=== PATIENT | female | born 1950 | race Caucasian/White ===

== ENCOUNTER → 2016-09-04 | Outpatient (CLI) | payer MEDICARE, OTHER ==
[~2016-09-04] MED LIST: ALDACTAZIDE 251 EACH PO; COLACE100 MG PO; IRON325 M1 PO; LISINOPRIL10 MG PO; MIRALAX 119 GR119 GM PO; MIRALAX17 GM PO; NORCO 7.5-3251 EACH PO; PRAVACHOL20 MG PO; PRAVASTATIN SOD10 MG PO; SERTRALINE HCL50 MG PO; TRAZODONE HCL50 MG PO; TYLENOL PM EX-1 EACH PO
== END ==
LOC: KOH-I 13:58
DX: M54.2 Cervicalgia (principal); M47.812 Spondylosis without myelopathy or radiculopathy, cervical region
CPT/HCPCS: 72050

== ENCOUNTER 2016-11-01 17:10 | Inpatient (IN) | payer MEDICARE, OTHER ==
[~2016-11-01] VITALS: Ht 172.7 cm; Wt 93.2 kg
[2016-11-01 19:28] LABS: RED BLOOD COUNT 2.96 M/UL (4.00-5.10); WHITE BLOOD COUNT 10.3 K/UL (4.5-11.0)
[2016-11-01 19:45] LABS: BUN/CREATININE RATIO 27 (0-10)
[2016-11-01] MEDS ORDERED: ALDACTAZIDE 251 EACH PO (22:10)
[2016-11-01] MEDS ORDERED: PRAVASTATIN SOD10 MG PO (22:11)
[2016-11-01] MEDS ORDERED: SERTRALINE HCL50 MG PO (22:11)
[2016-11-01] MEDS ORDERED: TRAZODONE HCL50 MG PO (22:11)
[2016-11-01] MEDS ORDERED: LISINOPRIL10 MG PO (22:11)
[2016-11-02 07:05] LABS: WHITE BLOOD COUNT 9.1 K/UL (4.5-11.0)
[2016-11-02 07:08] LABS: RED BLOOD COUNT 3.61 M/UL (4.00-5.10)
[2016-11-03 06:38] LABS: HEMOGLOBIN 8.3 gm/dl (12.3-15.3); RED BLOOD COUNT 3.79 M/UL (4.00-5.10); WHITE BLOOD COUNT 9.1 K/UL (4.5-11.0)
[2016-11-03 06:45] LABS: BUN/CREATININE RATIO 14 (0-10)
[2016-11-03] MEDS ORDERED: COLACE100 MG PO (18:22)
[2016-11-03] MEDS ORDERED: MIRALAX17 GM PO (18:23)
[2016-11-03] MEDS ORDERED: PRAVACHOL20 MG PO (18:25)
[2016-12-05] MEDS ORDERED: MIRALAX 119 GR119 GM PO (06:48)
[2016-12-05] MEDS ORDERED: TYLENOL PM EX-1 EACH PO (06:48)
[2016-12-05] MEDS ORDERED: IRON325 M1 PO (06:49)
[2016-12-05] MEDS ORDERED: NORCO 7.5-3251 EACH PO (09:47)
== END 2016-11-03 19:02 | disposition home or self-care (01) | DRG 394 ==
LOC: ER1 17:10 → M/S 20:25 → ZEROF 20:25 → M/S 22:26
PROVIDERS: Internal Medicine; Internal Medicine Gastroenterology; Physician Assistant; ADMIT Internal Medicine
PROC: 30233H1 Transfusion of Nonautologous Whole Blood into Peripheral Vein, Percutaneous Approach (ICD-10-PCS; 2016-11-01)
PROC: 0DJD8ZZ Inspection of Lower Intestinal Tract, Via Natural or Artificial Opening Endoscopic (ICD-10-PCS; principal; 2016-11-03 12:15)
DX: K64.8 Other hemorrhoids (principal); D62 Acute posthemorrhagic anemia; I10 Essential (primary) hypertension; E78.5 Hyperlipidemia, unspecified; F41.9 Anxiety disorder, unspecified; F32.9 Major depressive disorder, single episode, unspecified; R06.02 Shortness of breath; Z79.899 Other long term (current) drug therapy; D50.0 Iron deficiency anemia secondary to blood loss (chronic); D50.9 Iron deficiency anemia, unspecified; M17.11 Unilateral primary osteoarthritis, right knee; K57.90 Diverticulosis of intestine, part unspecified, without perforation or abscess without bleeding; K64.4 Residual hemorrhoidal skin tags
CPT/HCPCS: 36415; 71020; 80048; 80053; 82040; 82272; 83540; 83550; 84484; 85025; 85027; 86850; 86900; 86901; 86920; 93005; 99285; J2405; J7030; J7040; J7050; P9016; Q0162